=== PATIENT | female | born 2000 | race Caucasian/White ===

== ENCOUNTER 2022-07-02 11:14 | Emergency (ER) | payer MEDICAID ==
[~2022-07-02] VITALS: Ht 149.9 cm; Wt 49.0 kg
[2022-07-02 11:34] VITALS: BP 136/83
--- NOTE | 2022-07-02 12:10 | NUR ---
22/F C/O 8/10 LOWER ABD CRAMPING AND VAG BLEED SINCE LAST NIGHT, DENIES DIZZINESS, VISION CHANGES. SEEN AT URGENT CARE TODAY AND REFERRED TO ED FOR FURTHER EVAL. PATIENT IS A0. PMH: DENIES NKDA
[2022-07-02 12:36] LABS: BASOPHILS % (AUTO) 0.1 % (0.0-2.0); EOSINOPHILS % (AUTO) 0.2 % (0.0-4.0); HEMATOCRIT 38.8 % (36-48); HEMOGLOBIN 13.4 g/dL (12.0-16.0); LYMPHOCYTES # (AUTO) 1.7 K/uL (2.5-16.5); LYMPHOCYTES % (AUTO) 16.9 % (20.5-51.1); MEAN CORPUSCULAR HEMOGLOBIN 31 pg (27-31); MEAN CORPUSCULAR HGB CONC 35 g/dL (33-37); MEAN CORPUSCULAR VOLUME 88.4 fL (80-94); MONOCYTES # (AUTO) 0.5 K/uL (0.8-1.0); NEUTROPHILS # (AUTO) 7.9 K/uL (1.8-7.7); NEUTROPHILS % (AUTO) 77.8 % (42.2-75.2); PLATELET COUNT (AUTO) 272 K/uL (140-450); RED CELL DISTRIBUTION WIDTH 12.3 % (11.6-13.7); WHITE BLOOD COUNT (AUTO) 10.1 K/uL (4.8-10.8)
[2022-07-02 13:05] LABS: ANION GAP 13.6 (8-16); CARBON DIOXIDE 23.9 mmol/L (21-32); CREATININE 0.7 mg/dL (0.6-1.3); POTASSIUM 3.5 mmol/L (3.5-5.1); TOTAL BILIRUBIN 0.2 mg/dL (0.0-1.0)
[2022-07-02] MEDS ORDERED: PNV91TAB8 PO (13:23)
[2022-07-02 13:54] LABS: APPEARANCE,URINE CLEAR (CLEAR); BILIRUBIN,URINE NEGATIVE (NEGATIVE); BLOOD, URINE NEGATIVE (NEGATIVE); COLOR,URINE YELLOW (YELLOW); LEUKOCYTE ESTERASE ,URINE NEGATIVE (NEGATIVE); NITRITE, URINE NEGATIVE (NEGATIVE); UGLUCOSE NEGATIVE (NEGATIVE)
[2022-07-02 15:05] VITALS: BP 121/80
--- NOTE | 2022-07-02 15:05 | NUR ---
Patient discharged with v/s stable. Written and verbal after care instructions FOR VAGINAL BLEEDING given and explained. Patient alert, oriented and verbalized understanding of instructions. Ambulatory with steady gait. All questions addressed prior to discharge. ID band removed. Patient advised to follow up with PMD. Rx of PENATAL TAB given. Opportunity to ask questions provided and answered.
== END 2022-07-02 15:05 | disposition home or self-care (01) ==
LOC: MED 11:14
DX: O20.0 Threatened abortion (principal); O99.411 Diseases of the circulatory system complicating pregnancy, first trimester; R07.89 Other chest pain; O26.811 Pregnancy related exhaustion and fatigue, first trimester; R42 Dizziness and giddiness; O26.891 Other specified pregnancy related conditions, first trimester; M25.512 Pain in left shoulder; Z3A.08 8 weeks gestation of pregnancy; Z79.899 Other long term (current) drug therapy
CPT/HCPCS: 36415; 76801; 80053; 81003; 81025; 85025; 86900; 86901; 99284; Q0092